=== PATIENT | female | born 1965 | race Caucasian/White ===

== ENCOUNTER → 2021-06-22 | Outpatient (CLI) | payer OTHER, SELFPAY ==
--- NOTE | 2021-06-22 | CYSPIN_PTH ---
PATIENT: [facility] U[facility][id number] AGE/SX: 55/F ROOM: RE06/22/[address]: Dr. Brianna Conley MD : 1965 BED: DIS: 06/22/2021 SPEC #: [id number] RECD: 06/23/21 08:19 STATUS: LEXX ADAIR #: [id number] SHIVANI: 06/22/21 00:[address]: Brianna Conley DEPT: CYTOLOGY RECD BY: Gutierrez Rock Tissues: Urine Procedures: Pap Stain (control) Special Stain Group II Cytospin Fluid HEADER OPERATION: Not noted PRE-OP DIAGNOSIS: Gross hematuria TISSUE SUBMITTED: Urine for cytology DIAGNOSIS CYTOLOGY Urine for cytology (cytospin): Mildly atypical urothelial cells, favor reactive. Acute inflammatory cells and bacterial colonies are present. See comment. AM:mariana 06/23/2021 COMMENT Clinical correlation is suggested. CYTOLOGY STUDY Slides are reviewed. CYTOLOGY GROSS Received is 20 ml of orange cloudy fluid labeled with the patient's name and and designated per the requisition as urine. Submitted for cytology preparation. / mariana 06/23/2021 TC:2 CPT: 26974
[2021-06-22 18:09] LABS: Cytology, Body Fluid / CSF SEE PATHOLOGY REPORT
== END | disposition home or self-care (01) ==
PROVIDERS: Referring Provider Urology; Visit Provider Urology
DX: R31.0 Gross hematuria (principal)
CPT/HCPCS: 88108; 88313